=== PATIENT | female | born 1970 | race African-American/Black ===

== ENCOUNTER 2020-12-13 13:08 | Emergency (ER) | payer MEDICAID ==
[~2020-12-13] VITALS: Ht 175.3 cm; Wt 92.1 kg
[2020-12-13 13:18] VITALS: BP 142/88
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
--- NOTE | 2020-12-13 13:32 | NUR ---
ICE PACK APPLIED TO NECK/BACK
[2020-12-13] MEDS ORDERED: IBUPROFEN 600 MG TAB PO ONE (13:35)
[2020-12-13] MEDS ORDERED: CYCL-711 PO (13:42)
[2020-12-13] MEDS ORDERED: IBUP-2213 PO (13:42)
[2020-12-13 13:54] VITALS: BP 142/88
--- NOTE | 2020-12-13 13:54 | NUR ---
Patient discharged with v/s stable. Written and verbal after care instructions given and explained. Patient alert, oriented and verbalized understanding of instructions. Ambulatory with steady gait. All questions addressed prior to discharge. ID band removed. Patient advised to follow up with PMD. Rx of FLEXERIL, MOTRIN given. Patient educated on indication of medication including possible reaction and side effects. Opportunity to ask questions provided and answered.
== END 2020-12-13 13:54 | disposition home or self-care (01) ==
LOC: MED 13:08
DX: S16.1XXA Strain of muscle, fascia and tendon at neck level, initial encounter (principal); M79.10 Myalgia, unspecified site; Z88.0 Allergy status to penicillin; X58.XXXA Exposure to other specified factors, initial encounter; Y93.89 Activity, other specified; Y92.89 Other specified places as the place of occurrence of the external cause; Y99.8 Other external cause status
CPT/HCPCS: 99283